=== PATIENT | female | born 1995 | race Asian ===

== ENCOUNTER 2021-10-09 16:50 | Emergency (ER) | payer OTHER ==
[~2021-10-09] VITALS: Ht 154.9 cm; Wt 72.6 kg
[2021-10-09 16:50] VITALS: TEMP 98
[2021-10-09 19:25] VITALS: BP 121/68
== END 2021-10-09 19:34 | disposition home or self-care (01) ==
LOC: ED 16:59
DX: S90.811A Abrasion, right foot, initial encounter (principal); S50.311A Abrasion of right elbow, initial encounter; S40.211A Abrasion of right shoulder, initial encounter; S90.411A Abrasion, right great toe, initial encounter; S30.810A Abrasion of lower back and pelvis, initial encounter; S90.812A Abrasion, left foot, initial encounter; S80.212A Abrasion, left knee, initial encounter; S90.512A Abrasion, left ankle, initial encounter; S93.691A Other sprain of right foot, initial encounter; R23.8 Other skin changes; Y04.2XXA Assault by strike against or bumped into by another person, initial encounter; V03.00XA Pedestrian on foot injured in collision with car, pick-up truck or van in nontraffic accident, initial encounter; Y92.89 Other specified places as the place of occurrence of the external cause
CPT/HCPCS: 81002; 81025; 90471; 90715; 99283